=== PATIENT | female | born 1955 | race African-American/Black ===

== ENCOUNTER → 2019-07-06 | Day surgery (SDC) | payer MEDICAID ==
[~2019-07-06] MED LIST: LIDOCAINE HCL 1% 20ML VIAL (Pyxis) INJ ONE; SODIUM BICARBONATE 4% (2.4MEQ) 5ML VIAL IV ONE
== END | disposition home or self-care (01) ==
LOC: RAD 10:26 → EDUNIT# 11:00
PROVIDERS: ATTEND Specialist
DX: C50.012 Malignant neoplasm of nipple and areola, left female breast (principal)
CPT/HCPCS: 19281; J3490; 19285; U0003-CS

== ENCOUNTER → 2019-08-06 | Outpatient (CLI) | payer MEDICAID ==
[~2019-08-06] MED LIST changes: +AMLO10TA80 PO; +ASPI-1497 PO; -LIDOCAINE HCL 1% 20ML VIAL (Pyxis) INJ ONE; +LISI-649 PO; +OMEP20TA2 PO; -SODIUM BICARBONATE 4% (2.4MEQ) 5ML VIAL IV ONE
== END | disposition home or self-care (01) ==
LOC: LAB 10:21
PROVIDERS: ATTEND Specialist
DX: Z01.818 Encounter for other preprocedural examination (principal); Z11.59 Encounter for screening for other viral diseases
CPT/HCPCS: 87635; C9803

== ENCOUNTER 2019-08-10 09:29 | Day surgery (SDC) | payer MEDICAID ==
[~2019-08-10] VITALS: Ht 171.4 cm; Wt 79.4 kg
[2019-08-10] MEDS ORDERED: LACTATED RINGERS 1,000 ML IV SCH (11:00)
[2019-08-10 11:44] LABS: INR 1.1; PARTIAL THROMBOPLASTIN TIME 29.2 sec (23.4-31.0); PROTHROMBIN TIME 11.2 sec (9.6-11.0)
[2019-08-10] MEDS ORDERED: BUPIVACAINE HCL/PF 0.5% (5MG/ML) 10ML ONE (14:57)
[2019-08-10] MEDS ORDERED: BACITRACIN 50,000 UNITS/VIAL ONE (14:57)
[2019-08-10] MEDS ORDERED: LIDOCAINE HCL 1% 20ML VIAL (Pyxis) INJ ONE (14:57)
[2019-08-10] MEDS ORDERED: MIDAZOLAM HCL 2 MG/2 ML VIAL ONE (15:19)
[2019-08-10] MEDS ORDERED: PROPOFOL 200MG/20ML VIAL IV ONE (15:19)
[2019-08-10] MEDS ORDERED: FENTANYL CITRATE/PF 50MCG/ML 2ML VIAL ONE (15:19)
[2019-08-10] MEDS ORDERED: METOCLOPRAMIDE HCL 10MG/2ML VIAL ONE (15:20)
[2019-08-10] MEDS ORDERED: ONDANSETRON HCL 4MG/2ML INJ ONE (15:20)
[2019-08-10] MEDS ORDERED: LIDOCAINE HCL/PF 1% 10 MG/ML 5ML VIAL ONE (15:20)
[2019-08-10] MEDS ORDERED: CEFAZOLIN SODIUM 1000MG/VIAL ONE (15:21)
[2019-08-10] MEDS ORDERED: KETOROLAC 30MG/ML VIAL ONE (15:21)
[2019-08-10] MEDS ORDERED: DEXAMETHASONE 4MG/ML 1ML VIAL ONE (15:21)
[2019-08-10] MEDS ORDERED: ONDANSETRON HCL 4MG/2ML INJ IV PRN (17:00)
[2019-08-10] MEDS ORDERED: KETOROLAC 30MG/ML VIAL IV NR (17:00)
[2019-08-10] MEDS ORDERED: MEPERIDINE HCL/PF 25MG/ML CPJ IV PRN (17:00)
[2019-08-10] MEDS ORDERED: HYDROMORPHONE HCL/PF 2MG/ML CPJ IV PRN (17:00)
[2019-08-10] MEDS ORDERED: SKIN ADHESIVE 0.7 GM EA TOP ONE (17:05)
[2019-08-10 19:57] VITALS: BP 126/73
== END 2019-08-10 21:05 | disposition home or self-care (01) ==
LOC: OR 09:29
PROVIDERS: ATTEND Specialist
DX: D05.12 Intraductal carcinoma in situ of left breast (principal); I10 Essential (primary) hypertension; E78.5 Hyperlipidemia, unspecified; E78.00 Pure hypercholesterolemia, unspecified; Z79.82 Long term (current) use of aspirin; Z79.899 Other long term (current) drug therapy; Z98.890 Other specified postprocedural states
CPT/HCPCS: 19125; 36415; 38525; 85610; 85730; 88309; 93005; J0690; J1100; J1885; J2250; J2405; J2704; J2765; J3010; J3490; 88305